=== PATIENT | male | born 1955 | race Two or more races ===

== ENCOUNTER 2020-10-01 13:56 | Emergency (ER) | payer MEDICARE ==
[2020-10-01] MEDS ORDERED: EPINEPHRINE SYRINGE 0.1 MG/ML, 10ML ONE (14:00)
[2020-10-01] MEDS ORDERED: CODE BLUE RESPONSE XX ONE (14:00)
--- NOTE | 2020-10-01 14:05 | NUR ---
LATE ENTRY FOR 1405 D/T PATIENT CARE: PT BIBA FOR WITNESSED ARREST AT [facility]- REPORT TAKEN FROM EMS. EMS CALLED AT 1323. PER EMS, ON ARRIVAL CPR WAS IN PROGRESS. PT NOTED TO BE IN PEA INDUSTRY CONSULTANT. 4 DOSES EPI (1 MG EACH) GIVEN INDUSTRY CONSULTANT BY EMS. LMA AIRWAY PLACED INDUSTRY CONSULTANT BY EMS. FSBS 224 INDUSTRY CONSULTANT PER EMS. ON ARRIVAL TO [facility], CPR CONTINUED, PT VENTILATED VIA LMA. 1 MG EPI GIVEN. PT NOTED TO BE IN PERSISTENT PEA AFTER 2 ROUNDS CPR. NO CARDIAC ACTIVITY NOTED ON BEDSIDE US BY EDMD. TIME OF CALLED AT 1400 BY MD. PT VISITING FROM [facility], PER EMS PT HAS NO HX DRUG USE.
--- NOTE | 2020-10-01 14:30 | NUR ---
LATE ENTRY FOR 1430 D/T PATIENT CARE: ARRIVED TO ED, UPDATED WITH ED COURSE OF CARE BY MD, VERBAL SUPPORT GIVEN BY RN. CM AND BLACK STUDIES PROFESSOR CONSULTED. SPEAKING ON PHONE WITH VARIOUS FAMILY MEMBERS.
--- NOTE | 2020-10-01 15:02 | NUR ---
[employer] [employer] [place] CONTACTED AT 1450, THIS RN SPOKE WITH DEBONE SUPERVISOR OTILIA SWANSON. PT ASSIGNED . PT'S IS AT BEDSIDE, HOWEVER PT'S HAS BEEN ON THE PHONE FOR AN EXTENDED AMOUNT OF TIME WITH FAMILY AND DECLINES TO END PHONE CALL TO PROVIDE ADDITIONAL INFORMATION REQUIRED FOR TISSUE DONATION. DEBONE SUPERVISOR OTILIA STATES PT IS NOT A CANDIDATE FOR ORGAN DONATION. [facility] TO CALL BACK TO OBTAIN ADDITIONAL INFORMATION AND DETERMINE IF PT MEETS CRITERIA FOR TISSUE DONATION. [facility] AIRLINE PILOT FLIGHT INSTRUCTOR CALLED, EXAMINER DETERMINED THAT AN ON SCENE ASSESSMENT BE MADE. AIRLINE PILOT FLIGHT INSTRUCTOR AT BEDSIDE AT THIS TIME, PT'S AT BEDSIDE AT THIS TIME.
--- NOTE | 2020-10-01 15:46 | NUR ---
medicdal examiner Argenis Leung has determined pt is a coroners case, pt's Kiki Zaragoza notified and educated. at bedside for hospitalist medical director's assessment. and family (on phone with ) notified hospitalist medical director wishes to transport pt for mobile equipment mechanic's examination. family agrees. pt's was given time to visit with patient before patient was transported for mobile equipment mechanic's exam. pt was then bagged by this RN and hospitalist medical director, identifier placed by hospitalist medical director, pt transported out of department for mobile equipment mechanic's exam at 1535, aware of pt departure. pt belonings (clothes and wallet) with .
--- NOTE | 2020-10-01 17:25 | NUR ---
[employer] [place] CALLED FOR UPDATE IN CASE, REPRESENTATIVE GELA FINK STATES PT IS STILL BEING CONSIDERED FOR TISSUE DONATION, [employer] [employer] [place] IS STILL PLANNING ON CONTACTING PT'S FAMILY. SCIENCE INTERPRETER STATES PT'S CASE NUMBER IS [id number].
== END 2020-10-01 15:42 | disposition expired ==
LOC: ED 14:00
DX: I46.9 Cardiac arrest, cause unspecified (principal); E11.9 Type 2 diabetes mellitus without complications
CPT/HCPCS: 92950; 99285